=== PATIENT | male | born 2005 | race Two or more races ===

== ENCOUNTER 2024-10-15 19:31 | Emergency (ER) | payer MEDICAID ==
[~2024-10-15] VITALS: Ht 172.7 cm; Wt 108.8 kg
--- NOTE | 2024-10-15 20:34 | DVH ---
CLINICAL INDICATION: INJURY/PX TECHNIQUE: 2 radiographic views of the left shoulder were obtained. Comparison: None FINDINGS/IMPRESSION: Anterior dislocation of the left humerus without fracture.
[2024-10-15] MEDS ORDERED: HYDROcodone-ACET 5/325MG TAB PO ONE (21:00)
[2024-10-15] MEDS: HYDROcodone-ACET 5/325MG TAB PO ONE (21:28)
--- NOTE | 2024-10-15 21:45 | ED.PDOC ---
Back pain HPI HPI Comments 19-YEAR-OLD MALE PRESENTS IN THE ED WITH CC LEFT SHOULDER PAIN 01/31, PT STATED "I WAS MESSING AROUND AND FELT MY ARM POP, I THINK IT MIGHT BE OUT" PT REPORTS PAST HISTORY OF LEFT SHOULDER DISLOCATION DENIES ALL OTHER HISTORY. DENIES NUMBNESS, WEAKNESS, DIFFICULTY BREATHING, SHORTNESS OF BREATH, CHEST PAIN, NAUSEA, VOMITING, ANY OTHER KNOWN INJURY. Chief Complaint: Upper Extremity Time Seen by MD: 19:40 Reviewed Notes: Nurses Notes, Medications, Allergies Allergies: Coded Allergies: NO KNOWN ALLERGIES (Unverified , 10/15/24) Information Source: Patient Mode of Arrival: Ambulatory Past Medical History PAST MEDICAL HISTORY: Denies Surgical History: Denies all surgeries Family History Family History: Reviewed,noncontributory to illness Social History Smoker: Non-Smoker Alcohol: Denies ETOH Use Drugs: Denies Drug Use Constitutional: denies: chills, diaphoresis, fatigue, fever, malaise, sweats, weakness, others EENTM: denies: blurred vision, double vision, ear bleeding, ear discharge, ear drainage, ear pain, ear ringing, eye pain, eye redness, hearing loss, mouth pain, mouth swelling, nasal discharge, nose bleeding, nose congestion, nose pain, photophobia, tearing, throat pain, throat swelling, voice changes, others Respiratory: denies: cough, hemoptysis, orthopnea, SOB at rest, shortness of breath, SOB with excertion, stridor, wheezing, others Cardiovascular: denies: chest pain, dizzy spells, diaphoresis, Dyspnea on exertion, edema, irregular heart beat, left arm pain, lightheadedness, palpitations, PND, syncope, others Gastrointestinal: denies: abdomen distended, abdominal pain, blood streaked bowels, constipated, diarrhea, dysphagia, difficulty swallowing, hematemesis, melena, nausea, poor appetite, poor fluid intake, rectal bleeding, rectal pain, vomiting, others Genitourinary: denies: burning, dysuria, flank pain, frequency, hematuria, incontinence, penile discharge, penile sore, pain, testicle pain, testicle swelling, urgency, others Neurological: denies: dizziness, fainting, headache, left sided numbness, left sided weakness, numbness, paresthesia, pre-existing deficit, right sided numbness, right sided weakness, seizure, speech problems, tingling, tremors, weakness, others Musculoskeletal: reports: others (LEFT SHOULDER PAIN); denies: back pain, gout, joint pain, joint swelling, muscle pain, muscle stiffness, neck pain Integumetry: denies: bruises, change in color, change in hair/nails, dryness, laceration, lesions, lumps, rash, wounds, others Allergic/Immunocompromised: denies: Difficulty Healing, Frequent Infections, Hives, Itching, others Hematologic/Lymphatic: denies: anemia, blood clots, easy bleeding, easy bruising, swollen glands, others Endocrine: denies: excessive hunger, excessive sweating, excessive thirst, excessive urination, flushing, intolerance to cold, intolerance to heat, unexplained weight gain, unexplained weight loss, others Psychiatric: denies: anxiety, bipolar disorder, depression, hopeless, panic disorder, schizophrenia, sleepless, suicidal, others Physical Exam General Appearance: No Apparent Distress, Normal HEENT: Pharynx Normal Neck: Full Range of Motion, Non-Tender Respiratory: Lungs Clear, No Respiratory Distress, Normal Breath Sounds Cardiovascular: No Murmur, Normal Peripheral Pulses, Regular Rate/Rhythm Breast Exam: Deferred Gastrointestinal: Non Tender, Soft Genitalia: Deferred Pelvic: Deferred Rectal: Deferred Extremities: No calf tenderness, Non-tender Musculoskeletal : Location: Left Extremity Location: Shoulder (MODERATE TENDERNESS ON PALPATION ANTERIOR SHOULDER. DIFFICULTY WITH RANGE OF MOTION DUE TO SEVERE PAIN. SENSORY STRENGTH AND MOTION INTACT POSITIVE RADIAL PULSE) Apperance: Normal Neurologic: Alert, human resources temp II-XII nml as Tested, No Motor Deficits, Normal Affect, Normal Mood, No Sensory Deficits Cerebellar Function: Normal Reflexes: Normal Skin: Dry, Normal Color, Warm Lymphatic: No Adenopathy Was a procedure done? Was a procedure done?: Yes Sedation Sedation?: Yes Informed consent obtained: Yes Sedation start time: 23:57 Sedation end time: 23:58 Sedation total time: 3 minutes Sedation provider statement: 0010 patient back to baseline Reduction Indication: Dislocation Sedation: Consents obtained, Sedation as ordered, Intra-articular, Other (LEFT SHOULDER ANTERIOR REDUCTION) Intra-articular anesthetic abdirizak: No Post-reduction x-ray show: Reduction, Good Alignment Informed consent obtained: Yes Risks/benefits/alt described: Yes Notes PT PLACED ON MONITOR, O2, RT AT BEDSIDE AND DR. GOLDBERG. PATIENT TOLERATED PROCEDURE WELL W/O COMPLICATIONS. AIRWAY MAINTAINED MONITORED POST-PROCEDURE Back Pain Differential Dx Differential Diagnosis: Fracture, Musculoskeletal Pain X-Ray, Labs, Meds, VS Vital Signs Date Time Temp Pulse Resp B/P (MAP) Pulse Ox O2 Delivery O2 Flow Rate FiO2 10/15/24 21:42 97.7 88 19 133/85 (101) 97 97.7 10/15/24 21:42 88 19 97 Room Air 10/15/24 20:00 97.7 78 18 114/74 (87) 98 Current Medications Medications (Trade) Dose Ordered Sig/Farooq Route Start Time Stop Time Status Last Admin Acetaminophen/ Hydrocodone Bitart ([place] 5/325MG Tab) 2 tab ONCE ONCE PO 10/15/24 21:30 10/15/24 21:31 DC 10/15/24 21:28 Etomidate 10 mg ONCE ONCE IV 10/16/24 00:00 10/16/24 00:01 DC 10/15/24 23:51 X-Ray, Labs, Meds, VS Comment SEE PROCEDURE NOTE. PATIENT A0X3, PAIN FREE AT THIS TIME SLING IN PLACE FOR COMFORT. SCRIPT MOTRIN 800MG PRN. ICE DISCUSSED. FOLLOW UP WITH PCP IN 2-3 DAYS. ER RETURN PRECAUTIONS GIVEN, PATIENT INDICATED UNDERSTANDING. AGREESWITH DISCHARGE PLAN OF CARE. Time of 1ST Reevaluation: 00:31 Reevaluation 1ST: Improved Time of 2ND Reevaluation: 00:47 Reevaluation 2ND: Improved Patient Education/Counseling: Diagnosis, Treatment, Prognosis, Need For Follow Up Family Education/Counseling: No Family Present Departure 1 Departure Time of Disposition: 00:51 Impression: Primary Impression: Anterior shoulder dislocation Qualified Codes: S43.015A - Anterior dislocation of left humerus, initial encounter Disposition: HOME / SELF CARE / HOMELESS Condition: Stable e-Prescriptions Ibuprofen (Ibuprofen) 800 Mg Tab 1 TAB PO TID PRN for 5 Days, #15 TAB Prov: BYRON RAMIREZ 10/16/24 Discharged With: Significant Other Critical Care Note Critical Care Time?: Yes (30 min-critical care time only) Stability Stability form required: No BYRON RAMIREZ Oct 15, 2024 21:45
[2024-10-15] MEDS: ETOMIDATE (2MG/ML) 20ML VIAL IV ONE (23:51)
[2024-10-16] VITALS: TEMP 98.8
--- NOTE | 2024-10-16 00:20 | DVH ---
CLINICAL INDICATION: CLOSED REDUCTION TECHNIQUE: XY L SHOULDER 1V XRAY Comparison: XY L SHOULDER 2+ VIEW XRAY on DOS: 10/15/24 FINDINGS: IMPRESSION: 1. Interval reduction of previously seen left anterior shoulder dislocation. No osseous or joint abno rmality noted on the current study.
[2024-10-16 00:25] VITALS: BP 128/83; PULSE 84; RESP 26; O2SAT 95
[2024-10-16] MEDS ORDERED: IBUP-1456 PO (00:58)
== END 2024-10-16 01:48 | disposition home or self-care (01) ==
LOC: ER 19:31
DX: S43.015A Anterior dislocation of left humerus, initial encounter (principal); X50.1XXA Overexertion from prolonged static or awkward postures, initial encounter; Y93.89 Activity, other specified; Y92.89 Other specified places as the place of occurrence of the external cause; Y99.8 Other external cause status
CPT/HCPCS: 23650; 73020; 73030

== ENCOUNTER 2025-04-27 13:29 | Emergency (ER) | payer MEDICAID ==
[~2025-04-27] VITALS: Ht 172.7 cm; Wt 109.9 kg
--- NOTE | 2025-04-27 14:12 | DVH ---
EXAM: XY L SHOULDER 2+ VIEW XRAY CLINICAL INDICATION: SHOULDER PAIN TECHNIQUE: XY L SHOULDER 2+ VIEW XRAY Comparison: XY L SHOULDER 1V XRAY on DOS: 10/16/24, XY L SHOULDER 2+ VIEW XRAY on DOS: 10/15/24 FINDINGS/IMPRESSION: Anterior/inferior dislocation of the left humeral head
[2025-04-27 15:52] VITALS: PULSE 71; RESP 15
[2025-04-27] MEDS: SODIUM CHLORIDE 0.9% 1,000 ML IV ONE (16:04)
[2025-04-27] MEDS: ONDANSETRON HCL 4 MG/2 ML VIAL IV ONE (16:06)
[2025-04-27] MEDS: MORPHINE SULFATE 4 MG/ML SYR/VIAL IV ONE (16:06)
[2025-04-27] MEDS: PROPOFOL 10 MG/ML 20 ML IV ONE (16:14)
--- NOTE | 2025-04-27 16:40 | ED.PDOC ---
Musculoskeletal HPI Comments This is a 19 year old male presenting to the ED with chief complaint of left shoulder dislocation. Patient reports that he was horse playing earlier today and managed to dislocate his left shoulder. Patient relays that this has happened before 3 times. Patient denies any numbness, weakness, or further injury at this time. Chief Complaint: Upper Extremity Time Seen by MD: 15:30 Reviewed Notes: Nurses Notes, Medications, Allergies Allergies: Coded Allergies: NO KNOWN ALLERGIES (Unverified , 10/15/24) Information Source: Patient Mode of Arrival: Ambulatory Location: Left Extremity Location: Shoulder Timing: Hours Prehospital treatment: None Severity: Moderate Able to Move Extremity: No Pain: Moderate Mechanism: Spontaneous Circumstances: Playing Onset of Symptoms: Spontaneous Symptoms: Pain DVT Risk Factors: NONE Past Medical History PAST MEDICAL HISTORY: Denies Surgical History: Denies all surgeries Family History Family History: Reviewed,noncontributory to illness Social History Smoker: Non-Smoker Alcohol: Denies ETOH Use Drugs: Denies Drug Use Lives In: Home Constitutional: denies: chills, diaphoresis, fatigue, fever, malaise, sweats, weakness, others EENTM: denies: blurred vision, double vision, ear bleeding, ear discharge, ear drainage, ear pain, ear ringing, eye pain, eye redness, hearing loss, mouth pain, mouth swelling, nasal discharge, nose bleeding, nose congestion, nose pain, photophobia, tearing, throat pain, throat swelling, voice changes, others Respiratory: denies: cough, hemoptysis, orthopnea, SOB at rest, shortness of breath, SOB with excertion, stridor, wheezing, others Cardiovascular: denies: chest pain, dizzy spells, diaphoresis, Dyspnea on exertion, edema, irregular heart beat, left arm pain, lightheadedness, palpitations, PND, syncope, others Gastrointestinal: denies: abdomen distended, abdominal pain, blood streaked bowels, constipated, diarrhea, dysphagia, difficulty swallowing, hematemesis, melena, nausea, poor appetite, poor fluid intake, rectal bleeding, rectal pain, vomiting, others Genitourinary: denies: burning, dysuria, flank pain, frequency, hematuria, incontinence, penile discharge, penile sore, pain, testicle pain, testicle swelling, urgency, others Neurological: denies: dizziness, fainting, headache, left sided numbness, left sided weakness, numbness, paresthesia, pre-existing deficit, right sided numbness, right sided weakness, seizure, speech problems, tingling, tremors, weakness, others Musculoskeletal: reports: others (Left shoulder); denies: back pain, gout, joint pain, joint swelling, muscle pain, muscle stiffness, neck pain Integumetry: denies: bruises, change in color, change in hair/nails, dryness, laceration, lesions, lumps, rash, wounds, others Allergic/Immunocompromised: denies: Difficulty Healing, Frequent Infections, Hives, Itching, others Hematologic/Lymphatic: denies: anemia, blood clots, easy bleeding, easy bruising, swollen glands, others Endocrine: denies: excessive hunger, excessive sweating, excessive thirst, excessive urination, flushing, intolerance to cold, intolerance to heat, unexplained weight gain, unexplained weight loss, others Psychiatric: denies: anxiety, bipolar disorder, depression, hopeless, panic disorder, schizophrenia, sleepless, suicidal, others All Other Systems: Reviewed and Negative Physical Exam General Appearance: No Apparent Distress, Normal HEENT: Normal ENT Inspection, Pharynx Normal, TMs Normal Neck: Full Range of Motion, Non-Tender, Normal, Normal Inspection Respiratory: Chest Non-Tender, Lungs Clear, No Accessory Muscle Use, No Respiratory Distress, Normal Breath Sounds Cardiovascular: No Edema, No JVD, No Murmur, No Gallop, Normal Peripheral Pulses, Regular Rate/Rhythm Breast Exam: Deferred Gastrointestinal: No Organomegaly, Non Tender, No Pulsatile Mass, Normal Bowel Sounds, Soft Genitalia: Deferred Pelvic: Deferred Rectal: Deferred Extremities: No calf tenderness, Normal capillary refill, Normal inspection, Normal range of motion, Non-tender, No pedal edema Musculoskeletal : Location: Left Extremity Location: Shoulder Apperance: Deformity, Tenderness Neurologic: Alert, 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 Was a procedure done?: Yes Sedation Sedation?: Yes Informed consent obtained: Yes Sedation start time: 16:00 Sedation end time: 16:15 Sedation total time: 15 minutes Reduction Indication: Dislocation Sedation: Consents obtained, Sedation as ordered (Propofol) Post-reduction x-ray show: Reduction, Good Alignment Informed consent obtained: Yes Risks/benefits/alt described: Yes Notes Left shoulder Differential Diagnosis EXT Differential Diagnosis: Fracture, Dislocation, Contusion X-Ray, Labs, Meds, VS Vital Signs Date Time Temp Pulse Resp B/P (MAP) Pulse Ox O2 Delivery O2 Flow Rate FiO2 04/27/25 16:36 71 14 120/71 04/27/25 16:13 85 21 100 4.0 86 23 99 105 100 04/27/25 16:06 70 23 135/89 04/27/25 13:31 98.0 70 18 147/108 97 98.0 Current Medications Medications (Trade) Dose Ordered Sig/Farooq Route Start Time Stop Time Status Last Admin Sodium Chloride 1,000 ml @ 1,000 mls/hr Q1H ONCE IV 04/27/25 15:45 04/27/25 16:44 DC 04/27/25 16:04 Morphine Sulfate 4 mg ONCE ONCE IV 04/27/25 15:45 04/27/25 15:46 DC 04/27/25 16:06 Ondansetron HCl (Zofran) 4 mg ONCE ONCE IV 04/27/25 15:45 04/27/25 15:46 DC 04/27/25 16:06 Time of 1ST Reevaluation: 16:30 Reevaluation 1ST: Improved Patient Education/Counseling: Diagnosis, Treatment Family Education/Counseling: No Family Present Departure 1 Departure Time of Disposition: 17:02 (Patient's shoulder dislocation was reduced in the ER. Patient is placed in a sling we will discharge patient home with outpatient follow up) Impression: Primary Impression: Anterior shoulder dislocation Qualified Codes: S43.015A - Anterior dislocation of left humerus, initial encounter Disposition: HOME / SELF CARE / HOMELESS Condition: Stable Additional Instructions: You dislocated your shoulder. It was reduced in the ER. You were placed in a sling for comfort. For pain you can take the followinam: Ibuprofen 400mg with food Noon: Acetaminophen 1000mg 4pm: Ibuprofen 400mg with food 8pm: Acetaminophen 1000mg You were referred to an orthopedic surgeon to ensure you are healing well. Please call for an appointment within one week. If your symptoms worsen or you have any other concerns then please return to the ER. Discharged With: Self Critical Care Note Critical Care Time?: No Stability Stability form required: No Heart Score Heart Score: Heart Score Response (Comments) Value History N/A 0 EKG N/A 0 Age N/A 0 Risk Factors N/A 0 Troponin N/A 0 Total 0 I personally scribed for MELINDA ERICKSON MD ([email or web address]) on 04/27/25 at 16:40. Electronically submitted by Jose Martin Zuñiga ([email or web address]). MELINDA ERICKSON MD Apr 27, 2025 16:40
--- NOTE | 2025-04-27 16:41 | DVH ---
Indication: POST REDUCTION Technique: XY L SHOULDER 1V XRAYXY Comparison: 04/27/2025 FINDINGS/IMPRESSION: Interval reduction of left shoulder dislocation which now appears to be in anatomic alignment. Mild irregularity near the greater tuberosity may represent a hill-Sachs deformity. Patchy left lung airspace opacities.
[2025-04-27 17:50] VITALS: BP 121/79; PULSE 72; RESP 16; TEMP 98.3; O2SAT 96
== END 2025-04-27 18:04 | disposition home or self-care (01) ==
LOC: ER 13:29
DX: S43.015A Anterior dislocation of left humerus, initial encounter (principal); X58.XXXA Exposure to other specified factors, initial encounter; Y93.83 Activity, rough housing and horseplay; Y92.89 Other specified places as the place of occurrence of the external cause; Y99.8 Other external cause status
CPT/HCPCS: 23650; 73020; 73030; 96361; 96374; 96375; 99152; 99285; J2270; J2405; J2704; J7030